=== PATIENT | female | born 1995 | race Caucasian/White ===

== ENCOUNTER 2018-02-03 21:25 | Emergency (ER) | payer MEDICAID ==
[2018-02-04 01:07] VITALS: BP 142/74
== END 2018-02-04 01:45 | disposition home or self-care (01) ==
LOC: ED 21:25
DX: S93.601A Unspecified sprain of right foot, initial encounter (principal); X50.1XXA Overexertion from prolonged static or awkward postures, initial encounter; Y93.89 Activity, other specified; Y92.89 Other specified places as the place of occurrence of the external cause; Y99.8 Other external cause status
CPT/HCPCS: Q0092

== ENCOUNTER 2019-03-07 20:56 | Emergency (ER) | payer MEDICAID ==
[~2019-03-07] VITALS: Ht 170.2 cm; Wt 83.6 kg
[2019-03-07 21:02] VITALS: Ht 170.2 cm; Wt 83.6 kg
[2019-03-07 23:28] VITALS: BP 130/89
== END 2019-03-07 23:28 | disposition home or self-care (01) ==
LOC: ED 20:56
DX: S61.051A Open bite of right thumb without damage to nail, initial encounter (principal); S60.511A Abrasion of right hand, initial encounter; W55.01XA Bitten by cat, initial encounter; Y93.89 Activity, other specified; Y92.89 Other specified places as the place of occurrence of the external cause; Y99.8 Other external cause status
CPT/HCPCS: 90715; J0295